=== PATIENT | female | born 1930 | race Caucasian/White ===

== ENCOUNTER 2017-01-09 21:38 | Inpatient (IN) | payer MEDICARE, OTHER ==
[2017-01-09] MEDS ORDERED: Pantoprazole IV* 40 MG IV ONE (22:47)
[2017-01-09 23:11] LABS: Hematocrit 13 % (35-47); Mean Corpuscular HGB Conc 30 g/dl (31-36); Mean Corpuscular Hemoglobin 18 pg (27-31); Mean Corpuscular Volume 61 fL (80-97); Mean Platelet Volume 9 um3 (7.4-10.4); Red Blood Count 2.07 10^6/ul (4.0-5.4); Red Cell Distribution Width 18 % (10.5-15); White Blood Count 7.2 10^3/ul (3.5-10.8)
[2017-01-09 23:17] LABS: Add Diff/Slide Review? Slide Review Added; Comments Flag Yes
[2017-01-09 23:18] LABS: Hemoglobin 3.7 g/dl (12.0-16.0)
[2017-01-09 23:20] LABS: ALT 11 U/L (7-52); AST 10 U/L (13-39); Alkaline Phosphatase 60 U/L (34-104); Anion Gap 10 mmol/L (2-11); Blood Urea Nitrogen 34 mg/dL (6-24); C Reactive Protein < 1.00 mg/L (< 5.00); CO2 Carbon Dioxide 21 mmol/L (22-32); Calcium 8.9 mg/dL (8.6-10.3); Chloride 106 mmol/L (101-111); EGFR African American 67.6 (>60); EGFR Non-African American 52.6 (>60); Glucose 121 mg/dL (70-100); Magnesium 2.2 mg/dL (1.9-2.7); Potassium 3.9 mmol/L (3.5-5.0); Sodium 137 mmol/L (133-145)
[2017-01-09 23:22] LABS: Troponin I 0.01 ng/mL (<0.04)
[2017-01-09 23:33] LABS: TSH (Thyroid Stimulating Horm) 2.03 mcIU/mL (0.34-5.60)
[2017-01-09 23:37] LABS: Hypochromasia 3+; Microcytosis 3+; Polychromasia 1+; Target Cells 1+
--- NOTE | 2017-01-10 02:05 | ED ---
Cheryl Barreto Salem, scribed for Jesus Harriosn MD on 01/09/17 at 2240 . Complex/Multi-Sys Presentation - HPI Summary HPI Summary: Patient is a 86 y/o F who presents to the ED with fatigue for the past month. She states that she experienced pallor, anemia, and SOB with exertion at her PCP s office today and was sent to the ED. She denies hematuria or blood in the stool. Her daughter that pt has also lost approximately 10lbs in the last few months. Pt denies a hx of peptic ulcer or GERD. - History Of Current Complaint Chief Complaint: EDGeneral Hx Obtained From: Patient, Family/Copy Lathe Tender Onset/Duration: Gradual Onset, Lasting Weeks, Still Present Timing: Intermittent, Lasting: Severity Currently: Moderate Severity Initially: Moderate Location: Negative Aggravating Factor(s): Nothing. Alleviating Factor(s): Nothing. Associated Signs And Symptoms: Positive: SOB, Other - Pallor. Anemia. Fatigue. - Allergies/Home Medications Allergies/Adverse Reactions: Allergies Allergy/AdvReac Type Severity Reaction Status Date / Time No Known Allergies Allergy Verified 01/09/17 22:32 Home Medications: Home Medications Nifedipine [Nifedipine ER] 60 mg PO DAILY 01/09/17 [History Confirmed 01/09/17] PMH/Surg Hx/FS Hx/Imm Hx Cardiovascular History: Reports: Hx Hypertension Infectious Disease History: No Infectious Disease History: Denies: Traveled Outside the [place] in Last 30 Days - Family History Known Family History: Negative: Hypertension - Social History Alcohol Use: Rare Hx Substance Use: No Substance Use Type: Reports: None Hx Tobacco Use: Yes Smoking Status (MU): Former Smoker Review of Systems Positive: Fatigue, Other - Pallor. Anemia. Positive: Shortness Of Breath Negative: Abdominal Pain Genitourinary: Other - No blood in stool. Negative: hematuria All Other Systems Reviewed And Are Negative: Yes Physical Exam Triage Information Reviewed: Yes Vital Signs On Initial Exam: Initial Vitals Temp Pulse Resp BP Pulse Ox 98.3 F 90 20 142/53 100 01/09/17 21:58 01/09/17 21:58 01/09/17 21:58 01/09/17 21:58 01/09/17 21:58 Vital Signs Reviewed: Yes Appearance: Positive: No Pain Distress Skin: Positive: Dry, Pale Head/Face: Positive: Normal Head/Face Inspection Eyes: Positive: EOMI, GIOVANY Neck: Positive: Supple, Nontender Respiratory/Lung Sounds: Positive: Clear to Auscultation, Breath Sounds Present Cardiovascular: Positive: RRR Abdomen Description: Positive: Nontender, Soft Bowel Sounds: Positive: Present Musculoskeletal: Positive: Normal, Strength/ROM Intact Neurological: Positive: Normal, Sensory/Motor Intact, Alert, Oriented to Person Place, Time Psychiatric: Positive: Affect/Mood Appropriate - Melvin Coma Scale Coma Scale Total: 15 Diagnostics - Vital Signs Vital Signs Temp Pulse Resp BP Pulse Ox 01/09/17 22:26 98.3 F 76 16 136/46 98 01/09/17 21:58 98.3 F 90 20 142/53 100 - Laboratory Lab Results: Lab Results 01/09/17 01/09/17 01/09/17 Range/Units 22:24 22:24 22:24 WBC 7.2 (3.5-10.8) 10^3/ul RBC 2.07 L (4.0-5.4) 10^6/ul Hgb 3.7 L* (12.0-16.0) g/dl Hct 13 L (35-47) % MCV 61 L (80-97) fL MCH 18 L (27-31) pg MCHC 30 L (31-36) g/dl RDW 18 H (10.5-15) % Plt Count 337 (150-450) 10^3/ul MPV 9 (7.4-10.4) um3 Neut % (Auto) 70.3 (38-83) % Lymph % (Auto) 15.2 L (25-47) % Kaufman % (Auto) 11.3 H (1-9) % Eos % (Auto) 1.3 (0-6) % Baso % (Auto) 1.9 (0-2) % Absolute Neuts (auto) 5.1 (1.5-7.7) 10^3/ul Absolute Lymphs (auto) 1.1 (1.0-4.8) 10^3/ul Absolute Monos (auto) 0.8 (0-0.8) 10^3/ul Absolute Eos (auto) 0.1 (0-0.6) 10^3/ul Absolute Basos (auto) 0.1 (0-0.2) 10^3/ul Absolute Nucleated RBC 0.07 10^3/ul Nucleated RBC % 1.0 Normal RBC Morphology Not Reportable Polychromasia 1+ Hypochromasia 3+ Microcytosis 3+ Target Cells 1+ INR (Anticoag Therapy) 0.98 (0.89-1.11) APTT 24.3 L (26.0-36.3) seconds Sodium 137 (133-145) mmol/L Potassium 3.9 (3.5-5.0) mmol/L Chloride 106 (101-111) mmol/L Carbon Dioxide 21 L (22-32) mmol/L Anion Gap 10 (2-11) mmol/L BUN 34 H (6-24) mg/dL Creatinine 1.00 H (0.51-0.95) mg/dL Est GFR ( Amer) 67.6 (>60) Est GFR (Non-Af Amer) 52.6 (>60) BUN/Creatinine Ratio 34.0 H (8-20) Glucose 121 H (70-100) mg/dL Lactic Acid (0.5-2.0) mmol/L Calcium 8.9 (8.6-10.3) mg/dL Magnesium 2.2 (1.9-2.7) mg/dL Total Bilirubin 0.30 (0.2-1.0) mg/dL AST 10 L (13-39) U/L ALT 11 (7-52) U/L Alkaline Phosphatase 60 (34-104) U/L Troponin I 0.01 (<0.04) ng/mL C-Reactive Protein < 1.00 (< 5.00) mg/L B-Natriuretic Peptide ( - 100) pg/mL Total Protein 6.0 L (6.4-8.9) g/dL Albumin 4.0 (3.2-5.2) g/dL Globulin 2.0 (2-4) g/dL Albumin/Globulin Ratio 2.0 (1-3) TSH 2.03 (0.34-5.60) mcIU/mL Blood Type Antibody Screen Crossmatch 01/09/17 01/09/17 01/09/17 Range/Units 22:24 22:24 22:24 WBC (3.5-10.8) 10^3/ul RBC (4.0-5.4) 10^6/ul Hgb (12.0-16.0) g/dl Hct (35-47) % MCV (80-97) fL MCH (27-31) pg MCHC (31-36) g/dl RDW (10.5-15) % Plt Count (150-450) 10^3/ul MPV (7.4-10.4) um3 Neut % (Auto) (38-83) % Lymph % (Auto) (25-47) % Kaufman % (Auto) (1-9) % Eos % (Auto) (0-6) % Baso % (Auto) (0-2) % Absolute Neuts (auto) (1.5-7.7) 10^3/ul Absolute Lymphs (auto) (1.0-4.8) 10^3/ul Absolute Monos (auto) (0-0.8) 10^3/ul Absolute Eos (auto) (0-0.6) 10^3/ul Absolute Basos (auto) (0-0.2) 10^3/ul Absolute Nucleated RBC 10^3/ul Nucleated RBC % Normal RBC Morphology Polychromasia Hypochromasia Microcytosis Target Cells INR (Anticoag Therapy) (0.89-1.11) APTT (26.0-36.3) seconds Sodium (133-145) mmol/L Potassium (3.5-5.0) mmol/L Chloride (101-111) mmol/L Carbon Dioxide (22-32) mmol/L Anion Gap (2-11) mmol/L BUN (6-24) mg/dL Creatinine (0.51-0.95) mg/dL Est GFR ( Amer) (>60) Est GFR (Non-Af Amer) (>60) BUN/Creatinine Ratio (8-20) Glucose (70-100) mg/dL Lactic Acid 2.2 H* (0.5-2.0) mmol/L Calcium (8.6-10.3) mg/dL Magnesium (1.9-2.7) mg/dL Total Bilirubin (0.2-1.0) mg/dL AST (13-39) U/L ALT (7-52) U/L Alkaline Phosphatase (34-104) U/L Troponin I (<0.04) ng/mL C-Reactive Protein (< 5.00) mg/L B-Natriuretic Peptide 114 H ( - 100) pg/mL Total Protein (6.4-8.9) g/dL Albumin (3.2-5.2) g/dL Globulin (2-4) g/dL Albumin/Globulin Ratio (1-3) TSH (0.34-5.60) mcIU/mL Blood Type A Negative Antibody Screen Negative Crossmatch See Detail Result Diagrams: 01/09/17 22:24 01/09/17 22:24 Diagnostic Studies Comment: Hgb: 3.7. Lactic acid: 2.2. Trop 1: 0.01 Lab Statement: Any lab studies that have been ordered have been reviewed, and results considered in the medical decision making process. - Radiology CXR Radiology Interpretation Completed By: Radiologist - IMPRESSION: see EMR pending. Complex Multi-Symp Course/Dx Course Of Treatment: ADMIT HOSPITALIST STABLE - Diagnoses Provider Diagnoses: Anemia, GI bleed - Physician Notifications Discussed Care Of Patient With: Margarito Gutierrez Time Discussed With Above Provider: 23:42 Instructed by Provider To: Admit As Inpatient Admit/Transition Orders Completed By ED Provider: Yes - Critical Care Time Critical Care Time: 30-74 min Discharge - Discharge Plan Condition: Stable Disposition: ADMITTED TO [facility] Referrals: Hayley Rea MD [Primary Care Provider] - The documentation as recorded by the Cheryl epstein Salem accurately reflects the service I personally performed and the decisions made by me, Jesus Harrison MD.
[2017-01-10 02:19] LABS: Urine Bacteria 1+ (Absent); Urine Bilirubin Negative (Negative); Urine Glucose Negative (Negative); Urine Nitrite Negative (Negative)
[2017-01-10] MEDS: Pantoprazole IV* 80 MG in NS 0.9% 250 ML* 250 ML IVPB SCH ×2 (02:32→13:36)
--- NOTE | 2017-01-10 04:24 | HP ---
CC: Hayley Rea MD * HISTORY AND PHYSICAL: DATE OF ADMISSION: 01/10/17 CHIEF COMPLAINT: Weakness. HISTORY OF PRESENT ILLNESS: The patient is an 86-year-old woman who said that she went to her doctor today because she has been weak for about a month. She has just had decreased energy to do anything. She got a call from her doctor telling her blood count was low and to go immediately to the emergency room. In the ER, the patient was found to have a hemoglobin of 3.7. She denies any change in the color of her stools, she denies any blood in her stool. She denies any nausea or vomiting. She states she has not had a colonoscopy in sometime. She was also Hemoccult positive in the ER. PAST MEDICAL HISTORY: She has a past medical history significant for hypertension. CURRENT MEDICATIONS: Nifedipine ER 60 mg daily. ALLERGIES: She has no known drug allergies. FAMILY HISTORY: Reviewed, noncontributory. SOCIAL HISTORY: No tobacco, rare alcohol, no recreational drug use. She is retired. She is a with 3 children. Her [id number], Radha Ray and daughter Shyann Ray, are her healthcare proxies. REVIEW OF SYSTEMS: A 14-point review of systems was completed with the patient. All pertinent positives and negatives are in the history of present illness, otherwise it is negative. PHYSICAL EXAMINATION GENERAL: A pleasant woman, lying in bed, in no acute distress. VITAL SIGNS: Blood pressure is 136/63, pulse ox 96%, respiratory rate 17 breaths per minute, heart rate 74 beats per minute, and temperature 98.3 degrees. HEENT: Normocephalic, atraumatic. Pupils are equal, round, and reactive to light. Moist mucous membranes. She does have pale conjunctiva. NECK: Supple. No JVD, bruits, palpable thyroid or lymphadenopathy. CHEST: Clear to auscultation and percussion bilaterally. CARDIOVASCULAR: S1, S2 appreciated. ABDOMINAL EXAM: Positive bowel sounds in all 4 quadrants. Soft, nontender, nondistended. EXTREMITIES: No cyanosis, clubbing or edema. +2 peripheral pulses bilaterally. NEURO: Alert and oriented x3. Moves all extremities. SKIN: No rashes or other abnormalities. DIAGNOSTIC STUDIES/LAB DATA: INR is 0.98, PTT 24.3, white blood cell count 7.2 , hemoglobin 33.7, hematocrit 13. MCV is 61, platelet count is 337. Sodium is 137, potassium 3.9, chloride 106, CO2 21, BUN 34, creatinine 1, glucose 121, lactic acid 2.2. Chest x-ray shows cardiomegaly, but no apparent infiltrates. ASSESSMENT AND PLAN: 1. Anemia due to acute blood loss. At this point, it is likely iron deficiency anemia and I suspect there has been a slow leak over the last month. She is hemodynamically stable, which supports this. Nevertheless, I am going to put her in the ICU as she is unknown to this hospital and her hemoglobin is so significantly low. I will transfuse with 2 units at this time and have another 2 units available after checking her hemoglobin and hematocrit. I will be checking her hemoglobin and hematocrit q.4 hours. 2. GI bleed is the most likely source. Denies black tarry stools, denies NSAID use, so the etiology is unclear. I will place her on Protonix drip at this time. I will have GI see her in the morning. 3. FEN. NPO. Hold off on IV fluids at this time as her blood pressure is actually somewhat high. 4. DVT prophylaxis. Sequential compression stockings. 5. The patient is currently a full code. TIME SPENT: Over 85 minutes were spent on this H and P, more than 45 minutes of which was spent in direct [id number] contact with the patient in evaluation , physical exam, and counseling and coordination of care. [id number]/[facility] #: [id number] CRESCENCIO
[2017-01-10 05:09] LABS: Comments Flag Yes; Hematocrit 21 % (35-47)
[2017-01-10 05:10] LABS: Hemoglobin 6.3 g/dl (12.0-16.0)
--- NOTE | 2017-01-10 07:43 | RAD ---
HISTORY: Anemia COMPARISONS: None VIEWS:1: Single frontal portable view of the chest at 11:05 PM FINDINGS: LINES AND TUBES: None. CARDIOMEDIASTINAL SILHOUETTE: The cardiomediastinal silhouette is normal for portable technique. PLEURA: The costophrenic angles are sharp. No pleural abnormalities are noted. LUNG PARENCHYMA: The lungs are clear. ABDOMEN: There is a large hiatal hernia BONES AND SOFT TISSUES: Degenerative changes are noted IMPRESSION: HIATAL HERNIA. NO ACTIVE CARDIOPULMONARY DISEASE.
[2017-01-10 10:25] LABS: Hematocrit 25 % (35-47); Hemoglobin 7.8 g/dl (12.0-16.0)
[2017-01-10 10:32] LABS: Comments Flag Yes
--- NOTE | 2017-01-10 14:28 | PN ---
Subjective Date of Service: 01/10/17 Interval History: No c/o. Poor memory and disorganized thinking make it hard to obtain a reliable history. Objective Active Medications: Pantoprazole Sodium 80 mg/ (Sodium Chloride) 250 mls @ 25 mls/hr IVPB Q10H KATIUSKA Last Admin: 01/10/17 13:36 Dose: 25 mls/hr Vital Signs 01/10/17 01/10/17 01/10/17 02:00 02:15 02:17 Temperature 99.6 F Pulse Rate 97 75 80 Respiratory 16 12 Rate Blood Pressure 142/51 138/52 148/77 (mmHg) O2 Sat by Pulse 94 97 100 Oximetry 01/10/17 01/10/17 01/10/17 02:30 02:54 03:00 Temperature Pulse Rate 73 91 73 Respiratory 17 24 20 Rate Blood Pressure 148/56 143/51 (mmHg) O2 Sat by Pulse 97 98 99 Oximetry 01/10/17 01/10/17 01/10/17 03:20 03:30 04:00 Temperature Pulse Rate 72 72 67 Respiratory 18 20 16 Rate Blood Pressure 113/57 106/65 138/62 (mmHg) O2 Sat by Pulse 99 99 99 Oximetry 01/10/17 01/10/17 01/10/17 04:13 04:30 05:00 Temperature Pulse Rate 68 65 Respiratory 18 18 15 Rate Blood Pressure 121/44 117/60 104/57 (mmHg) O2 Sat by Pulse 99 98 Oximetry 01/10/17 01/10/17 01/10/17 05:30 06:00 06:30 Temperature Pulse Rate 72 67 73 Respiratory 20 18 16 Rate Blood Pressure 103/46 147/61 145/55 (mmHg) O2 Sat by Pulse 100 99 99 Oximetry 01/10/17 01/10/17 01/10/17 07:00 07:30 07:57 Temperature 98.4 F Pulse Rate 67 65 Respiratory 17 18 Rate Blood Pressure 142/52 (mmHg) O2 Sat by Pulse 99 96 Oximetry 01/10/17 01/10/17 01/10/17 08:00 08:30 08:35 Temperature Pulse Rate 69 63 64 Respiratory 22 21 20 Rate Blood Pressure 165/88 150/61 (mmHg) O2 Sat by Pulse 99 100 99 Oximetry 01/10/17 01/10/17 01/10/17 09:00 09:30 10:00 Temperature Pulse Rate 64 67 Respiratory 16 19 20 Rate Blood Pressure 144/44 153/53 (mmHg) O2 Sat by Pulse 99 100 Oximetry 01/10/17 01/10/17 01/10/17 10:30 11:00 11:03 Temperature Pulse Rate 65 68 71 Respiratory 18 18 21 Rate Blood Pressure 122/98 139/61 (mmHg) O2 Sat by Pulse 99 99 99 Oximetry 01/10/17 01/10/17 01/10/17 11:18 11:23 11:30 Temperature Pulse Rate 68 66 65 Respiratory 21 18 21 Rate Blood Pressure 143/57 140/96 146/55 (mmHg) O2 Sat by Pulse 100 99 99 Oximetry 01/10/17 01/10/17 01/10/17 11:45 12:00 12:15 Temperature 99.7 F Pulse Rate 63 64 66 Respiratory 20 18 24 Rate Blood Pressure 135/54 132/53 126/79 (mmHg) O2 Sat by Pulse 99 100 99 Oximetry 01/10/17 01/10/17 01/10/17 12:30 12:45 13:00 Temperature Pulse Rate 63 62 60 Respiratory 18 18 16 Rate Blood Pressure 151/66 150/59 150/57 (mmHg) O2 Sat by Pulse 99 99 99 Oximetry Oxygen Devices in Use Now: Nasal Cannula Appearance: Alert, sitting up in bed. In good spirits. Looks comfortable. Eyes: No Scleral Icterus Neck: NL Appearance and Movements; NL JVP, No Thyroid Enlargement, Masses Respiratory: Symmetrical Chest Expansion and Respiratory Effort, Clear to Auscultation, Clear to Percussion Abdominal: NL Sounds; No Tenderness; No Distention, No Hepatosplenomegaly, - Extremities: No Edema, No Clubbing, Cyanosis, - Skin: No Rash or Ulcers, No Nodules or Sclerosis, - Neurological: NL Sensation - Disoriented. Moves all limbs. No tremor. Wandering train of thought, doesn't complete her sentences. Result Diagrams: 01/10/17 10:00 01/09/17 22:24 Additional Lab and Data: Lab Results 01/09/17 01/09/17 01/09/17 Range/Units 22:24 22:24 22:24 WBC 7.2 (3.5-10.8) 10^3/ul RBC 2.07 L (4.0-5.4) 10^6/ul Hgb 3.7 L* (12.0-16.0) g/dl Hct 13 L (35-47) % MCV 61 L (80-97) fL MCH 18 L (27-31) pg MCHC 30 L (31-36) g/dl RDW 18 H (10.5-15) % Plt Count 337 (150-450) 10^3/ul MPV 9 (7.4-10.4) um3 Neut % (Auto) 70.3 (38-83) % Lymph % (Auto) 15.2 L (25-47) % Walworth % (Auto) 11.3 H (1-9) % Eos % (Auto) 1.3 (0-6) % Baso % (Auto) 1.9 (0-2) % Absolute Neuts (auto) 5.1 (1.5-7.7) 10^3/ul Absolute Lymphs (auto) 1.1 (1.0-4.8) 10^3/ul Absolute Monos (auto) 0.8 (0-0.8) 10^3/ul Absolute Eos (auto) 0.1 (0-0.6) 10^3/ul Absolute Basos (auto) 0.1 (0-0.2) 10^3/ul Absolute Nucleated RBC 0.07 10^3/ul Nucleated RBC % 1.0 Normal RBC Morphology Not Reportable Polychromasia 1+ Hypochromasia 3+ Microcytosis 3+ Target Cells 1+ INR (Anticoag Therapy) 0.98 (0.89-1.11) APTT 24.3 L (26.0-36.3) seconds Sodium 137 (133-145) mmol/L Potassium 3.9 (3.5-5.0) mmol/L Chloride 106 (101-111) mmol/L Carbon Dioxide 21 L (22-32) mmol/L Anion Gap 10 (2-11) mmol/L BUN 34 H (6-24) mg/dL Creatinine 1.00 H (0.51-0.95) mg/dL Est GFR ( Amer) 67.6 (>60) Est GFR (Non-Af Amer) 52.6 (>60) BUN/Creatinine Ratio 34.0 H (8-20) Glucose 121 H (70-100) mg/dL Lactic Acid (0.5-2.0) mmol/L Calcium 8.9 (8.6-10.3) mg/dL Magnesium 2.2 (1.9-2.7) mg/dL Total Bilirubin 0.30 (0.2-1.0) mg/dL AST 10 L (13-39) U/L ALT 11 (7-52) U/L Alkaline Phosphatase 60 (34-104) U/L Troponin I 0.01 (<0.04) ng/mL C-Reactive Protein < 1.00 (< 5.00) mg/L B-Natriuretic Peptide ( - 100) pg/mL Total Protein 6.0 L (6.4-8.9) g/dL Albumin 4.0 (3.2-5.2) g/dL Globulin 2.0 (2-4) g/dL Albumin/Globulin Ratio 2.0 (1-3) TSH 2.03 (0.34-5.60) mcIU/mL Blood Type Antibody Screen Crossmatch 01/09/17 01/09/17 01/09/17 Range/Units 22:24 22:24 22:24 WBC (3.5-10.8) 10^3/ul RBC (4.0-5.4) 10^6/ul Hgb (12.0-16.0) g/dl Hct (35-47) % MCV (80-97) fL MCH (27-31) pg MCHC (31-36) g/dl RDW (10.5-15) % Plt Count (150-450) 10^3/ul MPV (7.4-10.4) um3 Neut % (Auto) (38-83) % Lymph % (Auto) (25-47) % Walworth % (Auto) (1-9) % Eos % (Auto) (0-6) % Baso % (Auto) (0-2) % Absolute Neuts (auto) (1.5-7.7) 10^3/ul Absolute Lymphs (auto) (1.0-4.8) 10^3/ul Absolute Monos (auto) (0-0.8) 10^3/ul Absolute Eos (auto) (0-0.6) 10^3/ul Absolute Basos (auto) (0-0.2) 10^3/ul Absolute Nucleated RBC 10^3/ul Nucleated RBC % Normal RBC Morphology Polychromasia Hypochromasia Microcytosis Target Cells INR (Anticoag Therapy) (0.89-1.11) APTT (26.0-36.3) seconds Sodium (133-145) mmol/L Potassium (3.5-5.0) mmol/L Chloride (101-111) mmol/L Carbon Dioxide (22-32) mmol/L Anion Gap (2-11) mmol/L BUN (6-24) mg/dL Creatinine (0.51-0.95) mg/dL Est GFR ( Amer) (>60) Est GFR (Non-Af Amer) (>60) BUN/Creatinine Ratio (8-20) Glucose (70-100) mg/dL Lactic Acid 2.2 H* (0.5-2.0) mmol/L Calcium (8.6-10.3) mg/dL Magnesium (1.9-2.7) mg/dL Total Bilirubin (0.2-1.0) mg/dL AST (13-39) U/L ALT (7-52) U/L Alkaline Phosphatase (34-104) U/L Troponin I (<0.04) ng/mL C-Reactive Protein (< 5.00) mg/L B-Natriuretic Peptide 114 H ( - 100) pg/mL Total Protein (6.4-8.9) g/dL Albumin (3.2-5.2) g/dL Globulin (2-4) g/dL Albumin/Globulin Ratio (1-3) TSH (0.34-5.60) mcIU/mL Blood Type A Negative Antibody Screen Negative Crossmatch See Detail Microbiology and Other Data: Microbiology 01/10/17 02:00 Nasal Screen MRSA (PCR)(ANDRES) - Final Nasal Mrsa Negative Assess/Plan/Problems-Billing Assessment: - Patient Problems (1) Iron deficiency anemia Current Visit: Yes Status: Acute Code(s): D50.9 - IRON DEFICIENCY ANEMIA, UNSPECIFIED SNOMED Code(s): 41142576 Comment: Suspect UGI source related to Alleve use. Note high BUN. Received 4 UPC's. CBC, BMP 01/10. Iron studies pending. Family declined Dr. Stein's offer of EGD. Continue IV pantoprazole. Likely can go home 01/11 with oral omeprazole, iron. (2) Hypertension Current Visit: No Status: Chronic Code(s): I10 - ESSENTIAL (PRIMARY) HYPERTENSION SNOMED Code(s): 89791816 Comment: BP good off nifedipine. (3) Dementia Current Visit: Yes Status: Acute Code(s): F03.90 - UNSPECIFIED DEMENTIA WITHOUT BEHAVIORAL DISTURBANCE SNOMED Code(s): 76596402 Comment: B12 level, syphilis IgG add on requested. TSH wnl 01/09/17.
--- NOTE | 2017-01-10 15:04 | CONS ---
CC: Hayley Rea MD * CONSULTATION REPORT: DATE OF CONSULT: 01/10/17 REQUESTING PHYSICIAN: Dr. Gutierrez. INDICATION: Melena and iron-deficiency anemia. HISTORY OF PRESENT ILLNESS: Ms. Ray is a pleasant 86-year-old female with a history of hypertension and dementia who went to see her primary care physician yesterday. She was complaining of feeling fatigued, had a CBC checked and her hemoglobin was found to be 4. She was referred to the emergency room. In the emergency room, she was found to have a hemoglobin of 3.7. Unfortunately, the patient does have dementia. It is very difficult to get appropriate answers from her. I did speak in detail with the patient's daughter, Radha. There is mention of black and tarry stool; however, her daughter and the patient cannot confirm this. She does take Aleve on a daily basis, has done this for the past couple of months. The patient denies any abdominal pain. PAST MEDICAL HISTORY: Please see the HPI. MEDICATIONS: Include: 1. Nifedipine. 2. Aleve. ALLERGIES: None. FAMILY HISTORY: Unable to obtain from the patient. SOCIAL HISTORY: No tobacco. Occasionally drinks alcohol. REVIEW OF SYSTEMS: Twelve systems were reviewed, other than that mentioned in the HPI were unremarkable. PHYSICAL EXAM: Blood pressure is 150/57, pulse is 61, temperature is 99.7. General: Well-appearing female in no apparent distress. Alert, but not oriented. Pleasant, fluent. HEENT: Mucous membranes are moist, without lesions , ulcers, or exudate. Pulmonary: No wheezes, rales or rhonchi. Heart: Regular rate and rhythm. Abdomen: Positive bowel sounds. Soft, nontender, nondistended. No hepatosplenomegaly, masses, rebound or guarding. Skin is warm and dry. DIAGNOSTIC STUDIES/LAB DATA: Of note, hemoglobin went from 3.7 to 6.3 to 7.8, platelets are 337,000. INR is 0.98. Her BUN is 34, creatinine is 1. ASSESSMENT AND PLAN: This is a very pleasant 86-year-old female with anemia who is on Aleve and by report had black and tarry stools. Unfortunately, she does have dementia and is unable to give me much of a history. I had a very long discussion with the patient's daughter. We discussed workup possibilities for her mother and the anemia. Given her melena and Aleve use, I do wonder about peptic ulcer disease. We discussed this in detail. We discussed performing an endoscopy. We also discussed other procedures such as colonoscopy. The daughter really does not want to be very invasive at this time. After long discussions, we decided to continue with the IV Protonix and red blood cells. We will check a stool antigen for H. pylori and hold off on any EGDs at this point. The daughter states that she may change her mind tomorrow. [id number]/[facility] #: [id number] CRESCENC[facility]
[2017-01-10 16:22] LABS: Total Iron Binding Capacity 438 mcg/dL (250-450); Transferrin 313 mg/dL (203-362)
[2017-01-10 16:24] LABS: Iron 75 ug/dL (50-212)
[2017-01-10 16:43] LABS: Ferritin < 10.0 ng/mL (11-307)
[2017-01-10 16:47] LABS: Vitamin B12 501 pg/mL (180-914)
[2017-01-10] MEDS ORDERED: Haloperidol INJ IV/IM* 5 MG/ML AMP IV SLOW PU PRN (22:41)
[2017-01-11] MEDS: Pantoprazole IV* 80 MG in NS 0.9% 250 ML* 250 ML IVPB SCH ×2 (01:40→11:29)
[2017-01-11 07:28] LABS: Calcium 8.4 mg/dL (8.6-10.3); EGFR African American 78.4 (>60); EGFR Non-African American 60.9 (>60); Potassium 3.6 mmol/L (3.5-5.0)
[2017-01-11 07:35] LABS: Hematocrit 25 % (35-47); Mean Corpuscular HGB Conc 32 g/dl (31-36); Mean Corpuscular Hemoglobin 24 pg (27-31); Mean Corpuscular Volume 75 fL (80-97); Red Blood Count 3.35 10^6/ul (4.0-5.4); Red Cell Distribution Width 29 % (10.5-15); White Blood Count 8.9 10^3/ul (3.5-10.8)
[2017-01-11 07:42] LABS: Add Diff/Slide Review? Slide Review Added; Comments Flag Yes
[2017-01-11 08:09] LABS: Hypochromasia 2+
[2017-01-11 08:10] LABS: Microcytosis 2+; Polychromasia 1+
[2017-01-11] MEDS ORDERED: Pantoprazole IV* 40 MG ONE (08:29)
[2017-01-11] MEDS ORDERED: Haloperidol TAB* 1 MG ONE (09:56)
[2017-01-11 10:24] LABS: Syphilis Index < 0.1 Index
[2017-01-11] MEDS ORDERED: Haloperidol TAB* 1 MG PO PRN (11:08)
[2017-01-11] MEDS ORDERED: Acetaminophen TAB* 325 MG PO PRN (14:33)
--- NOTE | 2017-01-11 14:33 | PN ---
Subjective Date of Service: 01/11/17 Interval History: Interviewed and examined patient at bedside; Discussed case with Dr. Savage ; Reviewed previous notes and radiology results; Patient very disorganized; seems a progression of underlying dementia. U culture negative, despite some abnormalities on UA. Discussed possibility of hospital related delirium... patient seems to have both PT and OT needs. . Family History: Unchanged from Admission Social History: Unchanged from Admission Past Medical History: Unchanged from Admission Objective Active Medications: . Haloperidol (Haldol Tab*) 1 mg PO Q6H PRN PRN Reason: AGITATION Omeprazole (Prilosec Cap*) 40 mg PO DAILY@0600 [facility] . Vital Signs 01/10/17 01/10/17 01/10/17 14:30 14:45 15:00 Temperature Pulse Rate 79 79 74 Respiratory 17 18 21 Rate Blood Pressure 159/105 138/99 180/53 (mmHg) O2 Sat by Pulse 98 97 98 Oximetry 01/10/17 01/10/17 01/10/17 15:15 15:44 17:03 Temperature 98.2 F 97.6 F Pulse Rate 71 65 Respiratory 20 16 Rate Blood Pressure 172/69 144/80 (mmHg) O2 Sat by Pulse 99 100 Oximetry Oxygen Devices in Use Now: Nasal Cannula Appearance: NAD Eyes: No Scleral Icterus Ears/Nose/Mouth/Throat: Clear Oropharnyx Neck: NL Appearance and Movements; NL JVP, Trachea Midline Respiratory: Symmetrical Chest Expansion and Respiratory Effort Cardiovascular: NL Sounds; No Murmurs; No JVD Abdominal: NL Sounds; No Tenderness; No Distention Lymphatic: No Cervical Adenopathy Extremities: No Edema Skin: No Rash or Ulcers Neurological: Alert and Oriented x 3 Lines/Tubes/Other Access: Clean, Dry and Intact Peripheral IV - pulled out Nutrition: Taking PO's Result Diagrams: 01/12/17 10:04 01/11/17 06:14 Additional Lab and Data: . Microbiology and Other Data: Microbiology 01/10/17 02:00 Nasal Screen MRSA (PCR)(ANDRES) - Final Nasal Mrsa Negative Assess/Plan/Problems-Billing . Assessment: 86 yo female with severe blood loss anemia secondary to NSAID use and presumed gastritis vs. PUD. Hgb at admission <4, s/p 4 units prbc with Hgb now at 8 and stable with normal hemodynamics. Increasingly clear that patient also suffers from progressive dementia such that she is currently not capable of self-care. - Patient Problems (1) Dementia Status: Acute Code(s): F03.90 - UNSPECIFIED DEMENTIA WITHOUT BEHAVIORAL DISTURBANCE Comment: B12 level normal, syphilis IgG add on requested, though unlikely explanation Most likely progressive dementia unmasked / revealed by current illness Placement required for patient safety TSH wnl 01/09/17. (2) Iron deficiency anemia Status: Acute Code(s): D50.9 - IRON DEFICIENCY ANEMIA, UNSPECIFIED Comment: Suspect UGI source related to Alleve use; noted high BUN. Received 4 UPC's. -- hgb >= 8 now. Iron studies c/w iron deficiency Family declined Dr. Stein's offer of EGD. Continue IV pantoprazole==> convereted to PO for dc Home with PO omeprazole (3) Hypertension Status: Chronic Priority: High Code(s): I10 - ESSENTIAL (PRIMARY) HYPERTENSION Comment: BP good off nifedipine.
[2017-01-12] MEDS: Omeprazole CAP* 20 MG PO SCH ×2 (05:53→05:55)
[2017-01-12 10:28] LABS: Hematocrit 28 % (35-47); Hemoglobin 8.4 g/dl (12.0-16.0); Mean Corpuscular HGB Conc 30 g/dl (31-36); Mean Corpuscular Hemoglobin 23 pg (27-31); Mean Corpuscular Volume 76 fL (80-97); Mean Platelet Volume 9 um3 (7.4-10.4); Red Blood Count 3.62 10^6/ul (4.0-5.4); White Blood Count 7.3 10^3/ul (3.5-10.8)
[2017-01-12 10:41] LABS: Comments Flag Yes; Red Cell Distribution Width 30 % (10.5-15)
[2017-01-12 15:21] VITALS: BP 138/61
--- NOTE | 2017-01-13 09:43 | PN ---
Hospitalist Progress Note . HOSPITALIST DISCHARGE NOTE: See dc instructions and summary by me. Patient stable for dc dc instructions reviewed with the patient at the bedside. DC patient to [facility] today.
--- NOTE | 2017-01-13 11:29 | DS ---
CC: Hayley Rea MD DISCHARGE SUMMARY: DATE OF ADMISSION: 01/10/17 DATE OF DISCHARGE: 01/12/17 PRIMARY CARE PROVIDER: Hayley Rea MD PRINCIPAL DISCHARGE DIAGNOSIS: Blood loss related anemia, which was symptomatic, status post 4 unit s packed red blood cells transfusion with resolution of baseline functioning and a revelation of mod [id number] dementia with need for Assisted Living. SECONDARY DIAGNOSIS: Hypertension. DISCHARGE MEDICATION REGIMEN: 1. Acetaminophen 650 mg by mouth every 4 hours as needed for pain/fever. 2. Ferrous sulfate 325 mg by mouth twice daily. 3. Nifedipine 30 mg by mouth daily. 4. Omeprazole 40 mg by mouth daily. HISTORY OF PRESENT ILLNESS/HOSPITAL COURSE: Please see the H and P by Dr. Margarito Gutierrez on 01/10/17. In brief, Ms. Ray is an 86-year-old female, who has been progressively weak for about a month and experiencing decreased energy level and was found to have a hemoglobin of 3.7. The patient faisal ed any change in her stool or any evidence of bleeding. She came to the hospital, where her low hem oglobin was corroborated by repeat CBC. She was urgently transfused a total of 4 units. She had exp erienced over 10 pounds of weight loss over the past few weeks. This weight loss was assumed to be secondary to her anemia, although an outpatient abdominal CT is already ordered and should be pursue d. The patient was seen in consultation by Dr. Isaiah Mccloud, who recommended an upper EGD and the patient and her family denied. She was empirically started on an antacid and oral iron. Her hemogl obin was increased to 8 following the transfusion and she remained at that level with several repeat CBCs. Hemodynamically, she was stable with generally normal vital signs. Her repeat labs on January 11 were unremarkable except for her hemoglobin of 8.4, which was stable post transfusion. The janet ent was very confused and almost to the point of delirium during the hospitalization. There was ini tial concern for urinary tract infection given her abnormal urinalysis with leukocyte esterase and w bc's present though her urine culture did not grow any specific organism. The patient ambulated wit hout excessive difficulty, but was recommended for outpatient PT. Given her entire clinical situati on, she was recommended for Assisted Living and she was placed at [facility] and was discharged in stable condition on 01/12/17. Her workup for confusion included a syphilis IgG antibo dy, which was nonreactive. I note her chemistries were generally unremarkable. At the point of dis charge, her LFTs and protein levels were preserved and the TSH was normal. For more details regarding the hospitalization, please see the full medical record as this is a summ arized account of a complex hospitalization. TIME SPENT: Total time taken to discharge Ms. Ray was 30 minutes, greater than half that time spent reviewing the discharge instructions. CONDITION ON DISCHARGE: Stable. [id number]/CPS #: [id number]
== END 2017-01-12 15:15 | DRG 663 ==
LOC: ED 21:38 → ICU 01-10 01:40 → MED 01-10 17:13
PROVIDERS: ADMIT Internal Medicine; ATTEND Internal Medicine
PROC: 30233N1 Transfusion of Nonautologous Red Blood Cells into Peripheral Vein, Percutaneous Approach (ICD-10-PCS; principal; 2017-01-10)
DX: D62 Acute posthemorrhagic anemia (principal); F03.90 Unspecified dementia, unspecified severity, without behavioral disturbance, psychotic disturbance, mood disturbance, and anxiety; K92.1 Melena; I10 Essential (primary) hypertension; R41.0 Disorientation, unspecified; Z87.891 Personal history of nicotine dependence; R40.2412 Glasgow coma scale score 13-15, at arrival to emergency department; D50.0 Iron deficiency anemia secondary to blood loss (chronic); T39.395A Adverse effect of other nonsteroidal anti-inflammatory drugs [NSAID], initial encounter
CPT/HCPCS: 36415; 71010; 80048; 80053; 81003; 81015; 82270; 82607; 82728; 83540; 83550; 83605; 83735; 83880; 84443; 84484; 85014; 85018; 85025; 85610; 85730; 86140; 86592; 86850; 86900; 86901; 86922; 87086; 87338; 87641; A9270-GY; J1630; P9040

== ENCOUNTER 2017-04-25 09:26 | Emergency (ER) | payer OTHER ==
--- NOTE | 2017-04-25 10:30 | RAD ---
HISTORY: Fall, facial trauma COMPARISONS: None TECHNIQUE: Multiple contiguous axial CT scans were obtained of the head without intravenous contrast. FINDINGS: HEMORRHAGE/INFARCT: There is no hemorrhage or acute infarct. MASSES/SHIFT: There is no mass or shift. EXTRA-AXIAL SPACES: There are no extra-axial fluid collections. SULCI AND VENTRICLES: There is diffuse and proportional enlargement of the sulci and ventricles. CEREBRUM: There is hypoattenuation of the periventricular and subcortical white matter. BRAINSTEM: There are no focal parenchymal abnormalities. CEREBELLUM: There are no focal parenchymal abnormalities. VESSELS: The vessels are grossly normal. PARANASAL SINUSES: The paranasal sinuses are clear. ORBITS: The orbits are unremarkable. BONES AND SOFT TISSUE: No bone or soft tissue abnormalities are noted. OTHER: None IMPRESSION: NO ACUTE INTRACRANIAL PATHOLOGY. DIFFUSE INVOLUTIONAL CHANGE WITH CHRONIC SMALL VESSEL ISCHEMIC CHANGES.
--- NOTE | 2017-04-25 10:34 | RAD ---
HISTORY: Facial trauma, fall COMPARISONS: None TECHNIQUE: Multiple contiguous axial CT scans were obtained of the face without intravenous contrast, with coronal and sagittal multiplanar reformations. FINDINGS: BONES: There are nondisplaced fractures of the nasal bones bilaterally. The zygomatic arches are intact. The pterygoid plates are intact. The orbital rims are intact. There is diffuse osteopenia. ORBITS: The globes are round. The optic nerves are symmetric. The extraocular musculature is normal. There is no post septal or intraconal inflammatory change. There is no retrobulbar hematoma. PARANASAL SINUSES: The nasal septum is diffuse the left with left-sided spurring. BRAIN AND SOFT TISSUE: Unremarkable. OTHER: None. IMPRESSION: BILATERAL NASAL BONE FRACTURES.
[2017-04-25] MEDS ORDERED: Amoxicillin PO (*) 500 MG CAP PO ONE (10:49)
[2017-04-25 11:19] VITALS: BP 141/66
--- NOTE | 2017-04-25 11:20 | ED ---
Master Barreto Angela, scribed for Jimmy Donovan MD on 04/25/17 at 0942 . Throat Pain/Nasal Congestion - HPI Summary HPI Summary: This pt is a 86 y/o female BIBA from [place] presenting to [facility] c/o epistaxis s/p mechanical fall this morning. Pt reports she was rushing to her car when she tripped and fell, landing on her nose. She notes she had a lot of nose bleed at the moment. Currently, pt notes her bleeding has stopped and c/o nose pain and discomfort. Pt denies LOC, syncope, head strike, back pain, any other pain. PMHx: HTN. - History of Current Complaint Chief Complaint: EDEpistaxis Time Seen by Provider: 04/25/17 09:34 Hx Obtained From: Patient Onset/Duration: Sudden Onset - epistaxis s/p fall Associated Signs And Symptoms: Positive: Sinus Discomfort - Allergies/Home Medications Allergies/Adverse Reactions: Allergies Allergy/AdvReac Type Severity Reaction Status Date / Time No Known Allergies Allergy Verified 01/09/17 22:32 PMH/Surg Hx/FS Hx/Imm Hx Endocrine/Hematology History: Denies: Hx Diabetes Cardiovascular History: Reports: Hx Hypertension Musculoskeletal History: Reports: Other Musculoskeletal History - states wears brace because R knee gives out/ bends the wrong way Sensory History: Reports: Hx Contacts or Glasses Denies: Hx Hearing Aid Opthamlomology History: Reports: Hx Contacts or Glasses - Surgical History Surgery Procedure, Year, and Place: Hx Anesthesia Reactions: No Infectious Disease History: No Infectious Disease History: Denies: Traveled Outside the [place] in Last 30 Days - Family History Known Family History: Negative: Hypertension - Social History Alcohol Use: Rare Hx Substance Use: No Substance Use Type: Reports: None Hx Tobacco Use: Yes Smoking Status (MU): Former Smoker Review of Systems Negative: Fever, Chills Eyes: Negative Positive: Epistaxis, Other - nose pain Negative: Palpitations, Chest Pain Respiratory: Negative Gastrointestinal: Negative Genitourinary: Negative Musculoskeletal: Negative Skin: Negative Negative: Headache, Syncope All Other Systems Reviewed And Are Negative: Yes Physical Exam - Summary Physical Exam Summary: VITAL SIGNS: Reviewed. GENERAL: ~Patient is a well-developed and nourished female who is lying comfortable in the stretcher. ~Patient is not in any acute respiratory distress. HEAD AND FACE: No signs of trauma. ~No ecchymosis, hematomas or skull depressions. There is dry blood on pt's nose and her nostrils. There is no active bleeding. EYES: PERRLA, EOMI x 2, No injected conjunctiva, no nystagmus. EARS: Hearing grossly intact. Ear canals and tympanic membranes are within normal limits. MOUTH: Oropharynx within normal limits. NECK: Supple, trachea is midline, no adenopathy, no JVD, no carotid bruit, no c- spine tenderness, neck with full ROM. CHEST: Symmetric, no tenderness at palpation LUNGS: Clear to auscultation bilaterally. No wheezing or crackles. CVS: Regular rate and rhythm, S1 and S2 present, no murmurs or gallops appreciated. ABDOMEN: Soft, non-tender. No signs of distention. No rebound no guarding, and no masses palpated. Bowel sounds are normal. EXTREMITIES: FROM in all major joints, no edema, no cyanosis or clubbing. NEURO: Alert and oriented x 3. No acute neurological deficits. Speech is normal and follows commands. SKIN: Dry and warm GCS: 15 Triage Information Reviewed: Yes Vital Signs On Initial Exam: Initial Vitals Temp Pulse Resp BP Pulse Ox 98.2 F 71 16 150/73 96 04/25/17 09:29 04/25/17 09:29 04/25/17 09:29 04/25/17 09:29 04/25/17 09:29 Vital Signs Reviewed: Yes Diagnostics - Vital Signs Vital Signs Temp Pulse Resp BP Pulse Ox 04/25/17 09:29 98.2 F 71 16 150/73 96 - Laboratory Lab Statement: Any lab studies that have been ordered have been reviewed, and results considered in the medical decision making process. - CT Brain CT CT Interpretation: Positive (See Comments) - IMPRESSION: No acute intracranial pathology. Diffuse involutional change with chronic small vessel ischemic changes. ED physician has reviewed this radiology report and agrees. CT Interpretation Completed By: Radiologist Maxillofacial CT CT Interpretation: Positive (See Comments) - IMPRESSION: Bilateral nasal bone fractures. ED physician has reviewed this radiology report and agrees. CT Interpretation Completed By: Radiologist EENT Course/Dx - Course Assessment/Plan: Elderly female here c / o an accidental fall. She reports hitting her face but no LOC. She did have epistaxis but it has resolved spontaneously. She has no other complaints. She denies any neck or back pain. She has no CPS or SOB. Head CT: no acute intracranial findings. Facial bone CT shows bilateral nasal bone fracture. In the ED course she has remained asymptomatic. No other episodes of epistaxis. She had PO intake w/o Nausea or vomiting. She will be D/C home with f/u of PCP. I discussed all the findings and test results with the patient. Patient was instructed to return to the emergency room immediately if any of the symptoms return or worsens. Patient understands and agrees. Plan of care was discussed with the patient and patient understands and agrees with the plan of care. All questions were answered at patient satisfaction. There were no further complaints or concerns. Patient is alert and oriented x 3. Patient vital signs are stable. Patient is to follow up with primary care physician in the next 2 to 3 days. Patient understands and agrees. - Differential Diagnoses Differential Diagnoses: Fracture, Penetrating Injury, Trauma - Diagnoses Provider Diagnoses: Nasal bone fracture Discharge - Discharge Plan Condition: Stable Disposition: HOME Patient Education Materials: Nasal Fracture (ED) Referrals: Hayley Rea MD [Primary Care Provider] - Tejas Bhardwaj MD [Medical Doctor] - Additional Instructions: Please follow up with Dr. Bhardwaj, ENT doctor. The documentation as recorded by the Master epstein Angela accurately reflects the service I personally performed and the decisions made by me, Jimmy Donovan MD.
== END 2017-04-25 11:18 | disposition home or self-care (01) ==
LOC: ED 09:26
DX: S02.2XXA Fracture of nasal bones, initial encounter for closed fracture (principal); R04.0 Epistaxis; W19.XXXA Unspecified fall, initial encounter; Y93.9 Activity, unspecified; Y92.9 Unspecified place or not applicable; Z87.891 Personal history of nicotine dependence
CPT/HCPCS: 70450; 70486; 99282; A9270-GY

== ENCOUNTER 2017-09-07 13:23 | Emergency (ER) | payer OTHER ==
[2017-09-07 13:39] VITALS: BP 152/91
--- NOTE | 2017-09-07 15:00 | UC ---
Respiratory Complaint HPI - HPI Summary HPI Summary: decrease po intake for the last 3 meals, cough and fever - History of Current Complaint Chief Complaint: UCRespiratory Stated Complaint: COUGH,FEVER Time Seen by Provider: 09/07/17 14:45 Hx Obtained From: Patient, Family/Manager Corporate ?: No Onset/Duration: Sudden Onset, Lasting Days - 1, Still Present Timing: Constant Severity Initially: Moderate Severity Currently: Moderate Pain Intensity: 6 Pain Scale Used: 0-10 Numeric Character: Cough: Nonproductive Aggravating Factors: Nothing Alleviating Factors: Nothing Associated Signs And Symptoms: Positive: Fever, Chills, Edema, URI - Allergies/Home Medications Allergies/Adverse Reactions: Allergies Allergy/AdvReac Type Severity Reaction Status Date / Time No Known Allergies Allergy Verified 09/07/17 13:40 PMH/Surg Hx/FS Hx/Imm Hx Previously Healthy: No Cardiovascular History: Hypertension GI/ History: Gastroesophageal Reflux - Surgical History Surgical History: Yes Surgery Procedure, Year, and Place: - Family History Known Family History: Negative: Hypertension - Social History Occupation: Retired Lives: Assisted Living Alcohol Use: Rare Substance Use Type: None Smoking Status (MU): Former Smoker - Immunization History Most Recent Influenza Vaccination: unk Most Recent Pneumonia Vaccination: unk Review of Systems Constitutional: Fever, Chills, Fatigue Skin: Negative Eyes: Negative ENT: Negative Respiratory: Cough Cardiovascular: Negative Gastrointestinal: Negative Genitourinary: Negative Motor: Negative Neurovascular: Negative Musculoskeletal: Negative Neurological: Negative Psychological: Negative Is Patient Immunocompromised?: No All Other Systems Reviewed And Are Negative: Yes Physical Exam Triage Information Reviewed: Yes Appearance: No Pain Distress, Well-Nourished, Ill-Appearing Vital Signs: Initial Vital Signs Temp 100.9 F 09/07/17 13:32 Pulse 86 09/07/17 13:32 Resp 18 09/07/17 13:32 BP 152/91 09/07/17 13:32 Pulse Ox 97 09/07/17 13:32 Vital Signs Reviewed: Yes Eye Exam: Normal Eyes: Positive: Conjunctiva Clear ENT Exam: Normal ENT: Positive: Normal ENT inspection, Hearing grossly normal, Pharynx normal, TMs normal, Uvula midline. Negative: Nasal congestion, Tonsillar swelling, Tonsillar exudate, Trismus, Muffled voice, Hoarse voice, Dental tenderness, Sinus tenderness Dental Exam: Normal Neck exam: Normal Neck: Positive: Supple, Nontender, No Lymphadenopathy Respiratory Exam: Normal Respiratory: Positive: Chest non-tender, Lungs clear, Normal breath sounds, No respiratory distress, No accessory muscle use Cardiovascular Exam: Normal Cardiovascular: Positive: RRR, No Murmur, Pulses Normal, Brisk Capillary Refill Musculoskeletal Exam: Normal Musculoskeletal: Positive: Strength Intact, ROM Intact, No Edema Neurological Exam: Normal Neurological: Positive: Alert, Muscle Tone Normal Psychological Exam: Other Psychological: Positive: Other: - family reports some increased confusion Skin Exam: Normal UC Diagnostic Evaluation - Laboratory O2 Sat by Pulse Oximetry: 97 Diagnostic Studies Comment: Influenza A (+) - Radiology Xray Interpretation: No Acute Changes Radiology Interpretation Completed By: ED Physician, Radiologist Respiratory Course/Dx - Course Course Of Treatment: Temperature remains elevated , has not voided or taken po fluid, is weak and needs assitance outside of he usual to ambulate and transfer , discussed with family will tranfer to [facility] ED with family driving for comprehensive evaluation - Differential Dx/Diagnosis Provider Diagnoses: Influenza A, Dehydration Discharge - Discharge Plan Condition: Guarded Disposition: OTHER Discharge Disposition Comment: To [facility] by private car with son and daughter Patient Education Materials: Dehydration (ED), Influenza (ED), Hypertension (ED ) Referrals: Hayley Rea MD [Primary Care Provider] - Additional Instructions: We are discharging you from the urgent care to go directly to the emergency department for comprehensive care
--- NOTE | 2017-09-07 15:43 | RAD ---
HISTORY: Cough, fever COMPARISONS: January 09, 2017 VIEWS: 6: Frontal and lateral dual-energy views of the chest. FINDINGS: CARDIOMEDIASTINAL SILHOUETTE: The cardiomediastinal silhouette is normal. BLANQUITA: The blanquita are normal. PLEURA: The costophrenic angles are sharp. No pleural abnormalities are noted. LUNG PARENCHYMA: There is hyperinflation with flattening of the diaphragm and expansion of the AP diameter of the chest. ABDOMEN: Again noted is a large hiatal hernia. BONES AND SOFT TISSUES: Degenerative changes are noted along the spine. OTHER: None. IMPRESSION: 1. COPD. 2. LARGE HIATAL HERNIA. 3. NO ACTIVE CARDIOPULMONARY DISEASE.
[2017-09-07] MEDS ORDERED: Oseltamivir CAP* 75 MG CAP PO ONE (15:48)
[2017-09-07] MEDS ORDERED: Acetaminophen TAB* 325 MG PO ONE (15:48)
== END 2017-09-07 16:05 ==
LOC: UCEAST 13:23
DX: J09.X2 Influenza due to identified novel influenza A virus with other respiratory manifestations (principal); E86.0 Dehydration; Z87.891 Personal history of nicotine dependence
CPT/HCPCS: 71046; 87502; 99212; A9270-GY; G0463

== ENCOUNTER 2017-09-07 16:31 | Observation (INO) | payer OTHER ==
[2017-09-07] MEDS ORDERED: NS 0.9% 1000 ML* 2,000 ML IV ONE (18:42)
[2017-09-07 19:27] LABS: Hematocrit 36 % (35-47); Hemoglobin 12.3 g/dl (12.0-16.0); Mean Corpuscular HGB Conc 34 g/dl (31-36); Mean Corpuscular Hemoglobin 31 pg (27-31); Mean Corpuscular Volume 90 fL (80-97); Mean Platelet Volume 8 um3 (7.4-10.4); Platelet Count 221 10^3/ul (150-450); Red Blood Count 4.02 10^6/ul (4.0-5.4); Red Cell Distribution Width 13 % (10.5-15); White Blood Count 6.3 10^3/ul (3.5-10.8)
[2017-09-07 19:42] LABS: EGFR Non-African American 60.8 (>60)
--- NOTE | 2017-09-07 23:39 | HP ---
H&P (Free Text) History and Physical: PCP: Tod Rea MD Date/Time: 09/07/2017 2082 CC: none HPI: Mrs Yeager is an 87YO female resident of [facility] w/ HX HTN & GERD presents from [facility] for "medical clearance to return to [facility]". Per ED, she has family living in [place] who refused to take her home as they "did not want to be exposed to the flu". Upon my evaluationno family are present. She is oriented to person only which appears to be her baseline, denies complaints & states she feels "fine". She denies cough, congestion, F/C, sweats, N/V, diarrhea, chest pain, SOB, or other issues. Vital signs are stable. Labs are reasonably unremarkable. Half-Way paperwork was signed. As such, she will be admitted custodially. PMedHx HTN GERD Ambulatory Orders Acetaminophen TAB* [Tylenol TAB*] 650 mg PO Q4H PRN #30 tab 01/12/17 Ferrous Sulfate TAB* 325 mg PO BID 09/07/17 NIFEdipine ER TAB* [Procardia Xl TAB*] 60 mg PO DAILY 09/07/17 Omeprazole CAP* [Prilosec CAP* 20 MG] 40 mg PO 0600 09/07/17 Allergies No Known Allergies Allergy (Verified 09/07/17 13:40) PSurgHx unknown SocHx: no tobacco, rare alcohol, no recreational drugs; , resides at [facility]; full code status FamHx: unobtainable ROS: as above, otherwise reviewed and all were negative vitals: Vital Signs Temp 37.2 C 09/08/17 02:11 Pulse 80 09/08/17 02:11 Resp 18 09/08/17 03:10 BP 142/74 09/08/17 02:11 Pulse Ox 97 09/08/17 02:11 Intake & Output 09/07/17 09/07/17 09/08/17 11:59 23:59 11:59 Intake Total 1999 0 Balance 1999 0 Weight 75.296 kg 71.849 kg Intake: IV Fluids 1999 Oral 0 Other: Estimated Void Large # Bowel Movements 0 # Voids 1 Constitutional: NAD, normally developed, well-nourished elderly white female HEENM: atraumatic; sclera/conjunctiva: anicteric/clear; hearing: clinically mildly decreased; oropharynx: clear, mucosa tacky Neck: soft tissue: non-tender; thyroid: normal Pulmonary: clear to auscultation bilaterally, good aeration, no accessory muscle use CV: RR/RR, normal S1S2, no carotid bruit, no jugular venous distention, 2+ B DP/ PT, no edema Abdominal: soft, non-distended, non-tender, no rebound/guarding/rigidity, normoactive bowel sounds, no hepatosplenomegaly or masses, no costovertebral angle tenderness Musculoskeletal: general: grossly intact, no tenderness w/ palpation Integumental: normal appearance and texture of exposed skin Psychiatric orientation: AA&O to person only affect: calm mood: cooperative eye contact: fair content: unreliable memory: impaired responses: mildly slowed insight: poor Testing: Lab Results 09/07/17 09/07/17 09/07/17 Range/Units 19:10 19:10 19:10 WBC 6.3 (3.5-10.8) 10^3/ul RBC 4.02 (4.0-5.4) 10^6/ul Hgb 12.3 (12.0-16.0) g/dl Hct 36 (35-47) % MCV 90 (80-97) fL MCH 31 (27-31) pg MCHC 34 (31-36) g/dl RDW 13 (10.5-15) % Plt Count 221 (150-450) 10^3/ul MPV 8 (7.4-10.4) um3 Sodium 133 (133-145) mmol/L Potassium 3.7 (3.5-5.0) mmol/L Chloride 100 L (101-111) mmol/L Carbon Dioxide 25 (22-32) mmol/L Anion Gap 8 (2-11) mmol/L BUN 30 H (6-24) mg/dL Creatinine 0.88 (0.51-0.95) mg/dL Est GFR ( Amer) 78.2 (>60) Est GFR (Non-Af Amer) 60.8 (>60) BUN/Creatinine Ratio 34.1 H (8-20) Glucose 119 H (70-100) mg/dL Lactic Acid 1.5 (0.5-2.0) mmol/L Calcium 9.0 (8.6-10.3) mg/dL Total Bilirubin 0.40 (0.2-1.0) mg/dL AST 16 (13-39) U/L ALT 14 (7-52) U/L Alkaline Phosphatase 93 (34-104) U/L Total Protein 6.9 (6.4-8.9) g/dL Albumin 3.8 (3.2-5.2) g/dL Globulin 3.1 (2-4) g/dL Albumin/Globulin Ratio 1.2 (1-3) ECG, personally reviewed: sinus RBBB rate 72, no ischemia, small Q-waves II/III/ AVF Impression: 87F presenting with non-toxic influenza DIAGNOSIS & PLAN Primary non-toxic influenza : group home admission : drug abuse social worker ? need for placement : PO oseltamivir : supportive care Secondary HTN : continue diltiazem GERD : omeprazole Admission Rational: group home admission for non-toxic influenza DVTp: heparin SQ Code Status: full HCP: daughter, Shyann
[2017-09-07] MEDS ORDERED: Oseltamivir CAP* 75 MG CAP PO ONE (23:52)
[2017-09-07] MEDS ORDERED: Acetaminophen TAB* 325 MG PO PRN (23:56)
[2017-09-08] MEDS ORDERED: Omeprazole CAP* 20 MG PO SCH (06:00)
[2017-09-08] MEDS ORDERED: Heparin VIAL(*) 5000 UNITS/ML VIAL (FIVE THOUSAND) SUBCUT SCH (06:00)
[2017-09-08 08:52] VITALS: BP 137/70
[2017-09-08] MEDS ORDERED: Oseltamivir CAP* 30 MG CAP PO SCH (09:00)
[2017-09-08] MEDS ORDERED: NIFEdipine ER TAB* 30 MG PO SCH (09:00)
[2017-09-08] MEDS ORDERED: Ferrous Sulfate TAB* 325 MG PO SCH (09:00)
--- NOTE | 2017-09-08 10:42 | PN ---
Subjective Date of Service: 09/08/17 Interval History: Ms. Ray notes that she feels fine. She denies myalgias, cough, chest pain , SOB, nausea, abdominal pain, or diarrhea. Objective Active Medications: Acetaminophen (Tylenol Tab*) 650 mg PO Q4H PRN Ferrous Sulfate (Ferrous Sulfate Tab*) 325 mg PO BID KATIUSKA Heparin Sodium (Porcine) (Heparin Vial(*)) 5,000 units SUBCUT Q8HR KATIUSKA Nifedipine (Procardia Xl Tab*) 60 mg PO DAILY KATIUSKA Omeprazole (Prilosec Cap*) 40 mg PO 0600 KATIUSKA Oseltamivir Phosphate (Tamiflu Cap*) 30 mg PO BID KATIUSKA Vital Signs: Temp Pulse Resp BP Pulse Ox 99.0 F 81 17 137/70 96 09/08/17 02:11 09/08/17 08:34 09/08/17 08:34 09/08/17 08:34 09/08/17 08:34 Oxygen Devices in Use Now: None Appearance: Thin elderly female sitting up in chair in NAD Eyes: No Scleral Icterus Ears/Nose/Mouth/Throat: Mucous Membranes Moist Neck: Trachea Midline Respiratory: Symmetrical Chest Expansion and Respiratory Effort, Clear to Auscultation Cardiovascular: NL Sounds; No Murmurs; No JVD, No Edema Abdominal: NL Sounds; No Tenderness; No Distention Lymphatic: No Cervical Adenopathy Extremities: No Edema Skin: No Rash or Ulcers Neurological: NL Muscle Strength and Tone, - - Alert to self and place, interacts appropriately Nutrition: Taking PO's Result Diagrams: 09/07/17 19:10 09/07/17 19:10 Assess/Plan/Problems-Billing Assessment: Ms. Ray is an 87 yo female with a PMH of HTN and GERD who was admitted on with the influenza. - Patient Problems (1) Flu Comment: - Continue tamiflu. - Not hypoxic, T max 100.3 on arrival, no leukocytosis, labs unremarkable. (2) Hypertension Comment: - BP 130-150. - Continue nifedipine. (3) GERD (gastroesophageal reflux disease) Comment: - Continue omeprazole. (4) Dementia Comment: - Supportive care. (5) DVT prophylaxis Comment: - Heparin SQ. (6) Full code status Comment: Status and Disposition: OBV. Discharge to [facility].
--- NOTE | 2017-09-09 09:56 | DS ---
CC: Dr. Rea. * DISCHARGE SUMMARY: DATE OF ADMISSION: 09/07/17 DATE OF DISCHARGE: 09/08/17 PRIMARY CARE PHYSICIAN: Dr. Rea. ATTENDING PHYSICIAN: Dr. Adán Eisenberg * (dictation provided by Tiffanie Busch NP) PRIMARY DIAGNOSIS: Influenza. SECONDARY DIAGNOSES: 1. Dementia. 2. Hypertension. 3. GERD. MEDICATIONS: At the time of discharge are: 1. Tamiflu 30 mg p.o. b.i.d. x5 days. 2. Tylenol p.r.n. 3. Ferrous sulfate 325 mg p.o. b.i.d. 4. Nifedipine ER 60 mg daily. 5. Omeprazole 40 mg p.o. daily. HOSPITAL COURSE: Ms. Ray is an 87-year-old female with a past medical history of dementia, hypertension, and GERD, who presented to the hospital last evening with concern for symptoms of the flu. At the time of her examination in the ED, she denied any symptoms of cough, congestion, fevers, chills, sweats , nausea, vomiting, diarrhea, chest pain or shortness of breath. She had an influenza swab checked at [facility] prior to her arrival on the ED, which showed that she was positive for influenza A. She was placed on observation in the hospital overnight. Ms. Ray continues to look quite well this morning. She has no fever. Her T- max is 100.3 on arrival. Blood pressure is stable. She has no cough. She is ambulating in the room independently. Ms. Ray was medically stable for discharge back to [place]. DISPOSITION: To [facility]. DIET: Low fat, low salt. ACTIVITY: As tolerated. FOLLOWUP PLANS: Please follow up with Dr. Rea. TIME SPENT: Approximately 60 minutes was spent in discharge of this patient, more than half the time was spent with the patient at the bedside reviewing the events leading up to this hospitalization, performing the physical examination, and reviewing my plan of care. TIFFANIE BUSCH NP [id number]/[facility] #: [id number] [facility]
--- NOTE | 2017-09-09 12:33 | ED ---
Shelbi Barreto Julia, scribed for Jackson Caldwell MD on 09/07/17 at 2041 . Influenza-Like Illness - HPI Summary HPI Summary: This patient is a 87 year old F presenting to [facility] accompanied by son with a chief complaint of flu like symptoms for the past couple days. Patient reports decreased appetite. Son reports fever of roughly 100, and no PO intake since yesterday morning. Patient denies vomiting, diarrhea, CP, SOB, abdominal pain, back pain, body aches, dizziness, and weakness. Patient was sent from [facility] to be medically cleared to return to [place]. - History of Current Complaint Chief Complaint: EDFluSymptoms Time Seen by Provider: 09/07/17 19:18 Hx Obtained From: Patient, Family/Personnel Clerks Supervisor Onset/Duration: Lasting Days Associated Signs & Symptoms: T Max - about 100 Related Hx: Possible Flu/Infectious Exposure - recent dx - Allergy/Home Medications Allergies/Adverse Reactions: Allergies Allergy/AdvReac Type Severity Reaction Status Date / Time No Known Allergies Allergy Verified 09/07/17 13:40 Home Medications: Home Medications Ferrous Sulfate TAB* 325 mg PO BID 09/07/17 [History Confirmed 09/07/17] NIFEdipine ER TAB* [Procardia Xl TAB*] 60 mg PO DAILY 09/07/17 [History Confirmed 09/07/17] Omeprazole CAP* [Prilosec CAP* 20 MG] 40 mg PO 0600 09/07/17 [History Confirmed 09/07/17] PMH/Surg Hx/FS Hx/Imm Hx Endocrine/Hematology History: Denies: Hx Diabetes Cardiovascular History: Reports: Hx Hypertension Respiratory History: Denies: Other Respiratory Problems/Disorders Musculoskeletal History: Reports: Other Musculoskeletal History - states wears brace because R knee gives out/ bends the wrong way Sensory History: Reports: Hx Contacts or Glasses Denies: Hx Hearing Aid Opthamlomology History: Reports: Hx Contacts or Glasses - Surgical History Surgery Procedure, Year, and Place: Hx Anesthesia Reactions: No Infectious Disease History: No Infectious Disease History: Denies: Traveled Outside the [place] in Last 30 Days - Family History Known Family History: Negative: Hypertension - Social History Alcohol Use: Rare Hx Substance Use: No Substance Use Type: Reports: None Hx Tobacco Use: Yes Smoking Status (MU): Former Smoker Review of Systems Constitutional: Negative - weakness Positive: Fever. Negative: Chills Negative: Erythema Negative: Ear Ache Negative: Chest Pain Respiratory: Other - decrease appetite Negative: Shortness Of Breath, Cough Negative: Abdominal Pain, Vomiting, Nausea Negative: Myalgia, Edema Negative: Rash Neurological: Negative - dizziness All Other Systems Reviewed And Are Negative: Yes Physical Exam - Summary Physical Exam Summary: Constitutional: Well-developed, Well-nourished, Alert. (-) Distressed Skin: Warm, Dry HENT: Normocephalic; Atraumatic, dry mucosa membranes Eyes: Conjunctiva normal Neck: Musculoskeletal ROM normal neck. (-) JVD, (-) Stridor, (-) Tracheal deviation Cardio: Rhythm regular, rate normal, Heart sounds normal; Intact distal pulses; The pedal pulses are 2+ and symmetric. Radial pulses are 2+ and symmetric. (-) Murmur Pulmonary/Chest wall: Effort normal. (-) Respiratory distress, (-) Wheezes, (-) Rales Abd: Soft, (-) Tenderness, (-) Distension, (-) Guarding, (-) Rebound Musculoskeletal: (-) Edema Lymph: (-) Cervical adenopathy Neuro: Alert, Oriented x3 Psych: Mood and affect Normal Triage Information Reviewed: Yes Vital Signs On Initial Exam: Initial Vitals Temp Pulse Resp BP Pulse Ox 100.3 F 78 16 145/76 98 09/07/17 16:47 09/07/17 16:47 09/07/17 16:47 09/07/17 16:47 09/07/17 16:47 Vital Signs Reviewed: Yes Diagnostics - Vital Signs Vital Signs Temp Pulse Resp BP Pulse Ox 09/07/17 19:00 99.5 F 76 18 143/87 97 09/07/17 16:47 100.3 F 78 16 145/76 98 - Laboratory Lab Results: Lab Results 09/07/17 09/07/17 09/07/17 Range/Units 19:10 19:10 19:10 WBC 6.3 (3.5-10.8) 10^3/ul RBC 4.02 (4.0-5.4) 10^6/ul Hgb 12.3 (12.0-16.0) g/dl Hct 36 (35-47) % MCV 90 (80-97) fL MCH 31 (27-31) pg MCHC 34 (31-36) g/dl RDW 13 (10.5-15) % Plt Count 221 (150-450) 10^3/ul MPV 8 (7.4-10.4) um3 Sodium 133 (133-145) mmol/L Potassium 3.7 (3.5-5.0) mmol/L Chloride 100 L (101-111) mmol/L Carbon Dioxide 25 (22-32) mmol/L Anion Gap 8 (2-11) mmol/L BUN 30 H (6-24) mg/dL Creatinine 0.88 (0.51-0.95) mg/dL Est GFR ( Amer) 78.2 (>60) Est GFR (Non-Af Amer) 60.8 (>60) BUN/Creatinine Ratio 34.1 H (8-20) Glucose 119 H (70-100) mg/dL Lactic Acid 1.5 (0.5-2.0) mmol/L Calcium 9.0 (8.6-10.3) mg/dL Total Bilirubin 0.40 (0.2-1.0) mg/dL AST 16 (13-39) U/L ALT 14 (7-52) U/L Alkaline Phosphatase 93 (34-104) U/L Total Protein 6.9 (6.4-8.9) g/dL Albumin 3.8 (3.2-5.2) g/dL Globulin 3.1 (2-4) g/dL Albumin/Globulin Ratio 1.2 (1-3) Result Diagrams: 09/07/17 19:10 09/07/17 19:10 Lab Statement: Any lab studies that have been ordered have been reviewed, and results considered in the medical decision making process. - EKG 19:01 Cardiac Rate: NL - at 72 BPM EKG Rhythm: Sinus Rhythm EKG Interpretation: no STEMI Flu Symptom Course/Dx - Course Course Of Treatment: Pt presents with flu like symptoms. Patient reports decreased appetite. Son reports fever of roughly 100, and no PO intake since yesterday morning. Pt's EKG reveals no acute findings. Pt given Tamiflu, IV fluids, Prilosec, and Heprin. At 19:57 Dr. Nicole Cody stated she is concerned with lack of urine output. She states she would no take PO and appeared weak. Dr. Hassan agrees to evaluate pt. Dr. Hassan will admit. - Diagnoses Provider Diagnoses: Flu Discharge - Discharge Plan Condition: Stable Disposition: ADMITTED TO [facility] The documentation as recorded by the Shelbi epstein Julia accurately reflects the service I personally performed and the decisions made by me, Jackson Caldwell MD.
== END 2017-09-08 13:45 ==
LOC: ED 16:31 → MED 23:51
PROVIDERS: ADMIT Hospitalist; ATTEND Internal Medicine
DX: J11.1 Influenza due to unidentified influenza virus with other respiratory manifestations (principal); F03.90 Unspecified dementia, unspecified severity, without behavioral disturbance, psychotic disturbance, mood disturbance, and anxiety; I10 Essential (primary) hypertension; Z86.79 Personal history of other diseases of the circulatory system; Z87.19 Personal history of other diseases of the digestive system; Z87.891 Personal history of nicotine dependence; R50.9 Fever, unspecified
CPT/HCPCS: 36415; 80053; 83605; 85027; 93005; 96360; 99285; A9270-GY; G0378; J1644